=== PATIENT | male | born 1970 | race Caucasian/White ===

== ENCOUNTER 2023-11-18 04:56 | Emergency (ER) | payer OTHER, SELFPAY ==
[2023-11-18 04:58] VITALS: BP 190/109
--- NOTE | 2023-11-18 06:36 | ED.GENMED ---
History of Present Illness
General
Chief Complaint: Abdominal Pain
Source: patient and spouse
Exam Limitations: none
Time Seen by Provider: 11/18/23 06:26
Nursing documentation reviewed up to this point in time: agreed with
Travel History
Have you had any contact with someone who has COVID-19?: No
Do you have any symptoms of coronavirus? Fever > 100 degrees, chills, cough, shortness of breath, sore throat, loss of taste or smell, muscle aches, or headache?: No
History of Present Illness
History of Present Illness:
53-year-old male with past medical history of chronic back pain who presents to the emergency department for evaluation of abdominal pain. Patient reports onset of symptoms Friday night they initially were intermittent but since last night they
have been constant. He reports a sharp pain in the suprapubic region radiates towards the left lower quadrant. No clear triggering or relieving factors noted. Associate with nausea and an episode of dry heaving tonight. No diarrhea, mildly
constipated but did have a bowel movement yesterday. Denies any fevers or chills. Denies any dysuria, hematuria, change in urinary frequency. He denies any similar symptoms in the past. Denies any prior history of abdominal surgeries.
Past History
Past History
ED Past Medical History: None and Other (1 ACL right knee)
ED Past Surgical History: None
Social History
Tobacco: Non-smoker
Alcohol: Occasional
Personal:
Living: with family
Family History
Family History: CAD
Review of Systems
Review of Systems
All Other Systems: ROS reviewed and negative except as documented in HPI and ROS
Constitutional: Denies fever or chills
EENT: Denies sore throat or runny nose
Respiratory: Denies cough or trouble breathing
Cardiac: Denies chest pain or palpitations
ABD/GI: Reports abdominal pain, nausea and constipated; Denies vomiting or diarrhea
: Denies dysuria, frequency or flank pain
Musculoskeletal: Denies neck pain or back pain
Neurological: Denies dizzy or headache
Phy Exam
Physical Exam
Physical Exam:
General: Awake, alert, oriented x3; appears mildly uncomfortable
Head: Normocephalic, atraumatic
Eyes: Conjunctiva normal, sclera anicteric
Throat: Airway intact, handling secretions
Neck: Trachea midline, supple without meningismus
Lungs: Clear to auscultation bilaterally, no wheezing, rales, rhonchi
Heart: Regular rate and rhythm, no murmurs, gallops, or rubs
Abd: Soft, non distended, tender to palpation suprapubic region and left lower quadrant with voluntary guarding; no palpable abdominal masses
Back: No CVA tenderness
Neuro: No gross deficits
Skin: no rash
Extremities: Warm and well-perfused with good pulses in all extremities, no edema
Scores
Heart Failure Risk
Heart Failure Risk Score: Not Applicable
Heart Score for Chest Pain Patients
STEMI patient?: Not applicable
Withdrawal Assessment of Alcohol
Withdrawal Assessment Completed?: Not applicable
Course
Orders/Labs/Results
Orders:
Orders
11/18/23 06:35
CT Abd/pelvis W Iv Cont Urgent
Comment:
Reason For Exam: suprapubic-->LLQ abdominal pain
11/18/23 06:40
0.9% Sodium Chloride 500 ml [Nss] 500 ml IV BOLUS
Morphine Sulfate 4 mg IV NOW STA
11/18/23 06:49
Complete Blood Count/With Diff Urgent
Comprehensive Metabolic Panel Urgent
Lipase Urgent
11/18/23 08:23
Urinalysis Reflex To Culture Urgent
Date Specimen was Collected: 11/18/23
Time Specimen was Collected: 08:21
Abnormal Lab Results
11/18/23
06:49
WBC 13.0 H 10^3/uL
(4.8-10.8)
MCH 31.3 H pg
(27.0-31.0)
Absolute Neuts (auto) 9.3 H 10^3/uL
(1.4-6.5)
Absolute Monos (auto) 1.1 H 10^3/uL
(0.1-0.6)
Lymphocytes % 17.0 L %
(20.5-51.1)
Glucose 126 H mg/dl
(70-99)
ALT 59 H U/L
(0-50)
11/18/23 06:49
11/18/23 06:49
Vital Signs
Initial and Last Documented VS:
Initial Vital Signs
Temp Pulse Resp BP Pulse Ox
37.4 C 86 18 190/109 98
11/18/23 04:58 11/18/23 04:58 11/18/23 04:58 11/18/23 04:58 11/18/23 04:58
Last Documented Vital Signs
Temp Pulse Resp BP Pulse Ox
37.4 C 77 16 142/76 97
11/18/23 04:58 11/18/23 07:47 11/18/23 07:47 11/18/23 07:47 11/18/23 07:47
MDM/Problems Addressed
Differential Diagnosis Includes:
Acute diverticulitis, nephrolithiasis, UTI/pyelonephritis, AAA less likely in non-smoker
MDM/Problems Addressed:
53-year-old male presents for evaluation of abdominal pain intermittent for the past 2 days constant since last night. Hypertensive but otherwise normal vitals. Physical exam as above. Plan to place an IV check labs including CBC and CMP,
urinalysis. Will send for CT of the abdomen pelvis. Will treat pain. Monitor closely reassess after the above.
Labs reviewed: CBC shows leukocytosis to 13, CMP no clinically significant abnormalities. Awaiting results of CT.
CT shows acute uncomplicated sigmoid diverticulitis. Patient's pain is well-controlled here in the emergency room. He has no signs of sepsis. I think he is a reasonable candidate for treatment with outpatient antibiotics and he feels very
comfortable with this. Will have him follow-up with GI as an outpatient. Spoke about return precautions all questions answered.
Acute Exacerbation and/or Progression of Chronic Illness:
Acutely hypertensive likely related to pain�we will treat pain but no additional antihypertensive therapy for now
*Radiology
Radiology exam reviewed: radiology read reviewed
*Pulse Oximetry
Patient hypoxic: no
*Critical Care Note
Total Time (30-74mins, 75-104mins- exclusive of procedures): Not Applicable
Data Reviewed
Source: patient and spouse
ED Attending Note
-
Portions of this chart may have been created with voice recognition software.� Occasional wrong word or��sound alike� substitutions may have occurred due to the inherent limitations of voice recognition software.
Discharge Plan
Departure
Patient Disposition: Home (Routine Discharge)
Date of Disposition: 11/18/23
Time of Disposition: 08:33
Patient with high blood pressure during this ER visit?: Yes
Discharge Problem:
Acute diverticulitis, Hypertension
Instructions: Diverticulitis (DC), BLOOD PRESSURE
Prescriptions:
New
ciprofloxacin HCl 500 mg tablet
500 mg PO BID Qty: 14 0RF
metronidazole 500 mg tablet
500 mg PO TID Qty: 21 0RF
No Action
hydrocodone-acetaminophen [[place]] 1 EACH tablet
1 ea PO Q6HPRN PRN (Reason: pain) Qty: 40 0RF
Rx Instructions:
Take 1 tablet four times a day, every 6 hours for pain
cephalexin 500 MG capsule
500 mg PO QID 4 Days 0RF
lorazepam 1 MG tablet
1 mg PO TIDPRN PRN (Reason: pain/spasms) Qty: 40 0RF
Referrals:
Parish Ortiz MD [Active] - Call in 1-3 days for appt
Ariane Hutton MD [Family Provider] -
Activity Restrictions/Additional Instructions:
Thank you for visiting the Emergency Department at [facility].
1. Please schedule a follow up appointment as directed. Call first thing tomorrow morning to make an appointment.
2. If indicated, please take your medications as instructed and indicated on discharge paperwork.
3. If any of your symptoms do not improve, or persist, or become more severe within 6-12 hours, please return to the emergency department for further care.
4. Please return to the emergency department if you develop a headache, neck pain/stiffness, fever greater than 100.4F, chest pain, shortness of breath, persistent nausea, vomiting, slurred speech, difficulty walking, numbness/tingling, weakness,
signs of infection or any other symptoms that are worrisome to you.
Please call [phone] if you have any questions.
Interventions
Interventions:
*Risk Screen - Suicide Last Done: 11/18/23 04:58
*General Assessment Last Done: 11/18/23 04:58
*Neglect/Abuse Screening Last Done: 11/18/23 04:58
ED- Fall Risk Assessment Last Done: 11/18/23 07:47
*ED COVID-19 Vaccine History Last Done: 11/18/23 07:47
RS-Lhiyir-Ronqeerell Assessment Last Done: 11/18/23 06:20
Discharge Date and Time
Print Language: [id number]
[2023-11-18 07:05] LABS: % Basophils 0.6 % (0-2); % Eosinophils 2.3 % (0-6); % Immature Granulocytes 0.3 % (0-0.5); % Monocytes 8.1 % (1.7-9.3); % Neutrophils 71.7 % (42.2-75.2); Absolute Basophils 0.1 10^3/uL (0-0.2); Absolute Eosinophils 0.3 10^3/uL (0-0.7); Absolute Lymphocytes 2.2 10^3/uL (1.2-3.4); Absolute Monocytes 1.1 10^3/uL (0.1-0.6); Absolute Neutrophils 9.3 10^3/uL (1.4-6.5); Hematocrit 42.5 % (39.0-52.0); Hemoglobin 15.1 g/dL (13.0-18.0); Mean Corp Hgb Conc. 35.5 g/dL (33.0-37.0); Mean Corpuscular Hgb 31.3 pg (27.0-31.0); Mean Corpuscular Volume 88.2 fL (80.0-94.0); Mean Platelet Volume 9.7 fL (7.4-10.4); Nucleated Red Blood Cells % 0 % (-); Platelet Count 199 10^3/uL (130-400); Red Blood Cell Count 4.82 10^6/uL (4.70-6.10); Red Cell Dist. Width 12.6 % (11.5-14.5)
[2023-11-18] MEDS: NSS 500 IV (07:10)
[2023-11-18] MEDS: MORPHINE SULFATE 4 MG IV (07:10)
[2023-11-18 07:23] LABS: ALT (SGPT) 59 U/L (0-50); AST (SGOT) 35 U/L (17-59); Albumin 4.6 g/dl (3.5-5.0); Alkaline Phosphatase 53 U/L (38-126); Blood Urea Nitrogen 16 mg/dl (9-20); Calcium 9.2 mg/dl (8.4-10.2); Carbon Dioxide 24 mmol/L (22-30); Chloride 105 mmol/L (98-107); Glucose 126 mg/dl (70-99); Lipase 53 U/L (23-300); Potassium 4.6 mmol/L (3.5-5.1); Sodium 136 mmol/L (135-145); Total Bilirubin 0.6 mg/dl (0.2-1.3); Total Protein 7.3 g/dl (6.3-8.2); eGFR > 60.00
[2023-11-18 07:47] VITALS: BP 142/76
[2023-11-18 08:40] LABS: Urine Albumin Negative (Neg - Trace); Urine Bilirubin Negative (Negative); Urine Character Clear (Clear); Urine Color Yellow; Urine Glucose Negative (Negative); Urine Ketone Negative (Negative); Urine Leukocyte Negative (Negative); Urine Nitrite Negative (Negative); Urine Occult Blood Negative (Negative); Urine Specific Gravity 1.005 (<1.030); Urine Urobilinogen Negative (Neg - 1+)
[2023-11-18] MEDS: CIPRO 500 MG PO (09:09)
[2023-11-18] MEDS: FLAGYL 500 MG PO (09:09)
[2023-11-18] MEDS: TORADOL 15 MG IV (09:09)
== END 2023-11-18 09:31 | disposition home or self-care (01) ==
LOC: EMR 04:56
PROVIDERS: EMERGENCY PHYSICIAN Emergency Medicine; FAMILY PHYSICIAN Internal Medicine
DX: K57.32 Diverticulitis of large intestine without perforation or abscess without bleeding (principal); R03.0 Elevated blood-pressure reading, without diagnosis of hypertension
CPT/HCPCS: 99285; 96374; 96375; 96361; 74177; 80053; 81003; 83690; 85025; Q9967

== ENCOUNTER → 2024-09-07 11:44 | Outpatient (REF) | payer OTHER, SELFPAY | LOC: RAD 11:44 | PROVIDERS: ATTENDING PHYSICIAN Nurse Practitioner Family | DX: M54.50 Low back pain, unspecified (principal) | CPT/HCPCS: 72110 ==

== ENCOUNTER → 2024-09-16 09:30 | Outpatient (REF) | payer OTHER, SELFPAY | LOC: HWRAD 09:30 | PROVIDERS: ATTENDING PHYSICIAN Nurse Practitioner Family; FAMILY PHYSICIAN Internal Medicine | DX: R79.89 Other specified abnormal findings of blood chemistry (principal) | CPT/HCPCS: 76700 ==

== ENCOUNTER → 2025-06-10 16:45 | Outpatient (REF) | payer OTHER, SELFPAY | LOC: PAVMRI 16:45 | PROVIDERS: ATTENDING PHYSICIAN Physician Assistant Surgical; FAMILY PHYSICIAN Internal Medicine | DX: M54.16 Radiculopathy, lumbar region (principal); M54.50 Low back pain, unspecified; M47.816 Spondylosis without myelopathy or radiculopathy, lumbar region; Z98.1 Arthrodesis status | CPT/HCPCS: 72148 ==

== ENCOUNTER → 2025-07-17 08:54 | Outpatient (REF) | payer OTHER, SELFPAY | LOC: PAVMRI 08:54 | PROVIDERS: ATTENDING PHYSICIAN Physician Assistant Surgical; FAMILY PHYSICIAN Internal Medicine | DX: M48.062 Spinal stenosis, lumbar region with neurogenic claudication (principal); M54.16 Radiculopathy, lumbar region; M54.50 Low back pain, unspecified; Z98.1 Arthrodesis status; M54.6 Pain in thoracic spine | CPT/HCPCS: 72146 ==